=== PATIENT | male | born 2000 | race Two or more races ===

== ENCOUNTER 2020-08-14 05:55 | Emergency (ER) | payer SELFPAY ==
[~2020-08-14] VITALS: Ht 177.8 cm; Wt 77.1 kg
[2020-08-14 05:58] VITALS: BP 138/78
--- NOTE | 2020-08-14 05:58 | NUR ---
ED Nurse Note: pt RONA RA [id number] from home d/t ETOH intoxication with hematemesis for the past hour. Pt states last alcoholic drink was around midnight. Pt denies being a chronic etoh user. Pt is AAOx4, breathing even and unlabored, cooperative to care. Vital signs stable.
--- NOTE | 2020-08-14 06:11 | NUR ---
AMA: SEE AMA FORM. Pt refused blood draw, pt stated "Im scared of needled, Im good, I want to go." EDMD spoke with pt about the risks and benefits. Pt signed AMA form and walked out with steady gait.
--- NOTE | 2020-08-14 06:14 | Emergency Room Report ---
History of Present Illness General Chief Complaint: Alcohol Intoxication Source: Patient Present Illness HPI Disclaimer: Please note that this report is being documented using [employer] technology. This can lead to erroneous entry secondary to incorrect interpretation by the dictating instrument. HPI: 20-year-old male presents for evaluation of alcohol intoxication. He is reporting weakness and blood-tinged sputum after vomiting. He reports drinking approximately 10 beers and using methamphetamines tonight. He says he feels weak. Not taking any anticoagulants. Currently denies abdominal pain. He arrives by EMS but is now refusing labs and evaluation. He says this change his mind did not want an IV or bloods drawn. He does not appear intoxicated and ambulates with a steady gait. He is answering questions appropriately. 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 EOMI. Resp: Normal work of breathing Abdomen: Soft, nontender, nondistended Skin: Intact. No abrasions, laceration or rash over the exposed skin MSK: Normal tone and bulk. Moving all extremities. No obvious deformity. Neuro: Awake and alert. Mentating appropriately Medical Decision Making Diagnostic Impression: Primary Impression: Left against medical advice ER Course 20-year-old male presents for weakness and reported one episode of blood-tinged emesis. Differential includes was not limited to dehydration, gastritis, peptic ulcer disease, Farzaneh-[place] tear, esophageal bleeding, substance abuse, pancreatitis, esophagitis, esophageal perforation among others. Patient admits to alcohol and substance abuse last night but is mentating appropriately and clinically does not appear intoxicated. He is now refusing labs, IV, fluids or other interventions. He states change his mind about medical evaluation. He would like to go home. I explained to him that a GI bleed secondary to varices can be potentially fatal and requires work-up but the patient refused. He ambulated from the emergency department. Last Vital Signs Date Time Temp Pulse Resp B/P (MAP) Pulse Ox O2 Delivery O2 Flow Rate FiO2 08/14/20 05:50 98.1 100 21 138/78 (98) 98 Room Air Disposition: AGAINST MEDICAL ADVICE Condition: Stable Paul Berg MD Aug 14, 2020 06:14
== END 2020-08-14 06:30 | disposition left against medical advice (07) ==
LOC: EDBD 05:55 → EMR 06:20
DX: F10.129 Alcohol abuse with intoxication, unspecified (principal); F19.10 Other psychoactive substance abuse, uncomplicated; Z53.29 Procedure and treatment not carried out because of patient's decision for other reasons
CPT/HCPCS: 96361; 96374; 99284